=== PATIENT | male | born 1960 | race African-American/Black ===

== ENCOUNTER → 2023-08-27 15:21 | Outpatient (REF) | payer OTHER, SELFPAY | LOC: RAD 15:21 | PROVIDERS: ATTENDING PHYSICIAN Family Medicine | DX: F17.210 Nicotine dependence, cigarettes, uncomplicated (principal) | CPT/HCPCS: 71271 ==

== ENCOUNTER → 2023-12-19 15:33 | Outpatient (REF) | payer OTHER, SELFPAY | LOC: RAD 15:33 | PROVIDERS: ATTENDING PHYSICIAN Internal Medicine Critical Care Medicine; FAMILY PHYSICIAN Family Medicine | DX: R91.1 Solitary pulmonary nodule (principal) | CPT/HCPCS: 71250 ==

== ENCOUNTER → 2023-12-22 07:06 | Day surgery (SDC) | payer OTHER, SELFPAY ==
[2023-12-04 06:49] VITALS: BMI 24.9
[2023-12-04 08:52] LABS: INR 1.11; PT 14.3 Sec (11.4-14.6)
[2023-12-04 08:54] LABS: APTT 36.8 Sec (23.4-35.0)
[2023-12-04 08:58] LABS: Hematocrit 29.6 % (39.0-52.0); Hemoglobin 10.4 g/dL (13.0-18.0); Mean Corp Hgb Conc. 35.1 g/dL (33.0-37.0); Mean Corpuscular Hgb 26.4 pg (27.0-31.0); Mean Corpuscular Volume 75.1 fL (80.0-94.0); Mean Platelet Volume 8.9 fL (7.4-10.4); Platelet Count 749 10^3/uL (130-400); Red Blood Cell Count 3.94 10^6/uL (4.70-6.10); Red Cell Dist. Width 13.6 % (11.5-14.5); White Blood Cell Count 19.3 10^3/uL (4.8-10.8)
[2023-12-04 09:33] LABS: Blood Urea Nitrogen 10 mg/dl (9-20); Carbon Dioxide 24 mmol/L (22-30); Chloride 99 mmol/L (98-107); Estimated Creatinine Clearance 108 ml/min; Glucose 157 mg/dl (70-99); Potassium 4.5 mmol/L (3.5-5.1); Sodium 135 mmol/L (135-145); eGFR > 60.00
--- NOTE | 2023-12-04 12:21 | PTCARENOTE ---
WBC's 19.3 collected today; Misa at 's office was notified.
== END ==
LOC: SDS 07:06
PROVIDERS: ATTENDING PHYSICIAN Internal Medicine Critical Care Medicine; FAMILY PHYSICIAN Family Medicine
DX: R91.1 Solitary pulmonary nodule (principal); Z53.8 Procedure and treatment not carried out for other reasons
CPT/HCPCS: 31654; 80048; 85027; 85610; 85730; 93005

== ENCOUNTER 2024-01-05 06:40 | Day surgery (SDC) | payer OTHER, SELFPAY ==
[2024-01-05] VITALS (10 sets, daily range): BP systolic 107–127; BP diastolic 61–85; BMI 24.1
[2024-01-05] MEDS: VENTOLIN NEBULES 2.5 MG INH (11:29)
[2024-01-05 11:38] LABS: Glucose - Point of Care 132 mg/dl (70-99)
[2024-01-05 14:01] LABS: Glucose - Point of Care 129 mg/dl (70-99)
== END 2024-01-05 15:29 | disposition home or self-care (01) ==
LOC: SDS 06:40
PROVIDERS: ATTENDING PHYSICIAN Internal Medicine Critical Care Medicine
DX: C34.12 Malignant neoplasm of upper lobe, left bronchus or lung (principal); F17.210 Nicotine dependence, cigarettes, uncomplicated; J43.2 Centrilobular emphysema; R59.0 Localized enlarged lymph nodes
CPT/HCPCS: 31629; 31627; 31623; 31628; 31624; 31653; 88172; 88173; 88305; 71045; 76000; 81459; 82962; 87015; 87070; 87102; 87116; 87205; 88112; 88177; 88333; 88334; 88341; 88342; 94640; C1887

== ENCOUNTER → 2024-01-22 08:27 | Outpatient (REF) | payer OTHER, SELFPAY ==
[2024-01-22 13:55] VITALS: BP 126/74; BP_SYST 101
[2024-01-22 16:02] VITALS: BP 123/68
== END ==
LOC: RADI 08:27
PROVIDERS: ATTENDING PHYSICIAN Internal Medicine Hematology & Oncology; FAMILY PHYSICIAN Family Medicine
DX: C49.22 Malignant neoplasm of connective and soft tissue of left lower limb, including hip (principal)
CPT/HCPCS: 88305; 20206; 76942; 88341; 88342

== ENCOUNTER → 2024-03-06 10:14 | Outpatient (REF) | payer OTHER, SELFPAY | LOC: RAD 10:14 | PROVIDERS: ATTENDING PHYSICIAN Internal Medicine Critical Care Medicine; FAMILY PHYSICIAN Family Medicine; REFERRING PHYSICIAN Internal Medicine Hematology & Oncology | DX: R91.1 Solitary pulmonary nodule (principal); J43.2 Centrilobular emphysema; R93.89 Abnormal findings on diagnostic imaging of other specified body structures | CPT/HCPCS: 71046 ==

== ENCOUNTER → 2025-03-07 11:21 | Outpatient (REF) | payer BC, SELFPAY | LOC: HWRAD 11:21 | PROVIDERS: ATTENDING PHYSICIAN Radiology Radiation Oncology; FAMILY PHYSICIAN Family Medicine | DX: C34.12 Malignant neoplasm of upper lobe, left bronchus or lung (principal) | CPT/HCPCS: 71250 ==